=== PATIENT | female | born 1965 | race African-American/Black ===

== ENCOUNTER → 2017-01-12 | Day surgery (SDC) | payer MEDICARE, OTHER ==
[~2017-01-12] MED LIST: ACET325T9 PO; Amoxicillin/Potassium Clav PO; DOCU-109 PO; IV RINGERS,LACTATED 1000ML 1,000 ML IV SCH; LIDOCAINE 1% 1 ML SYRINGE. ID PRN; MIDAZOLAM HCL/PF 2 MG/2 ML VIAL. IV PRN; OXYB5TAB7 PO; PROPOFOL 20 ML IV ONE; fentaNYL PF VIAL 100 MCG/2 ML VIAL IV PRN
[2017-01-12 11:49] VITALS: BP 132/70
== END | disposition home or self-care (01) ==
LOC: SURG 08:41
PROVIDERS: ATTEND Internal Medicine Gastroenterology
DX: Z12.11 Encounter for screening for malignant neoplasm of colon (principal); K64.0 First degree hemorrhoids; J45.909 Unspecified asthma, uncomplicated; Z86.69 Personal history of other diseases of the nervous system and sense organs; Z87.39 Personal history of other diseases of the musculoskeletal system and connective tissue; D64.9 Anemia, unspecified; Z88.6 Allergy status to analgesic agent; Z91.040 Latex allergy status; Z91.013 Allergy to seafood
CPT/HCPCS: G0121; J2704